=== PATIENT | male | born 1960 | race Caucasian/White ===

== ENCOUNTER 2019-04-07 16:11 | Emergency (ER) | payer OTHER ==
--- NOTE | 2019-04-07 16:52 | ED ---
Upper Extremity Pain - HPI Summary HPI Summary: Patient is a 58-year-old male presenting to the ED after a fall from skiing. He states he fell directly on the right shoulder. He is unable to move the shoulder. He is endorsing pain over the shoulder without pain to the neck to the head or to the right arm otherwise. Denies any chest pain or rib pain. He states he denies any other injuries during his fall. He has taken no medication prior to arrival. He has never injured the right shoulder in the past. - History of Current Complaint Chief Complaint: EDShouVania Stated Complaint: R SHOULDER PAIN PER EMS Time Seen by Provider: 04/07/19 16:17 Hx Obtained From: Patient Mechanism Of Injury: Blunt Trauma Onset/Duration: Started Hours Ago Timing: Constant Severity Initially: Moderate Severity Currently: Moderate Pain Location: Shoulder Aggravating Factor(s): Movement, Lifting, Flexion, Extension, Internal/External Rotation Alleviating Factor(s): Rest Associated Signs & Symptoms: Negative: Swelling, Redness, Bruising Related History: Dominant Hand Right - Risk Factors Non-Orthopedic Risk Factor: Negative DVT Risk Factors: Negative Septic Arthritis Risk Factor: Negative - Allergies/Home Medications Allergies/Adverse Reactions: Allergies Allergy/AdvReac Type Severity Reaction Status Date / Time Penicillins Allergy unk Verified 03/31/18 09:46 Home Medications: Home Medications Albuterol HFA INHALER* [Ventolin HFA Inhaler*] 1 puff INH Q6H PRN #1 mdi [Rx] Azithromycin TAB* [Zithromax TAB (Z-LASHA) 250 mg #6 tabs] 2 tab PO .TODAY, THEN 1 DAILY #1 lasha 03/31/18 [Rx] HYDROcodone/ACETAMIN 5-325 MG* [[place] 5-325 TAB*] 1 tab PO Q4H PRN #18 tab MDD 6 04/07/19 [Rx] PMH/Surg Hx/FS Hx/Imm Hx Previously Healthy: Yes Endocrine/Hematology History: Denies: Hx Diabetes, Hx Thyroid Disease Cardiovascular History: Denies: Hx Hypertension, Hx Pacemaker/ICD Respiratory History: Denies: Hx Asthma, Hx Chronic Obstructive Pulmonary Disease (COPD) GI History: Denies: Hx Ulcer Sensory History: Denies: Hx Hearing Aid Psychiatric History: Denies: Hx Panic Disorder - Surgical History Surgery Procedure, Year, and Place: VASECTOMY/HEMROIDECTOMY - Immunization History Hx Pertussis Vaccination: No Immunizations Up to Date: Yes Infectious Disease History: No Infectious Disease History: Denies: Hx Hepatitis, Hx Human Immunodeficiency Virus (HIV), Traveled Outside the US in Last 30 Days - Family History Known Family History: Positive: None - Social History Occupation: Employed Full-time Lives: With Family Alcohol Use: Daily Hx Substance Use: No Substance Use Type: Reports: None Hx Tobacco Use: No Smoking Status (MU): Never Smoked Tobacco Review of Systems Negative: Fever, Chills, Fatigue, Skin Diaphoresis Negative: Palpitations, Chest Pain Negative: Shortness Of Breath, Cough Genitourinary: Negative Positive: no symptoms reported, see HPI Positive: Arthralgia - right shoulder pain. Negative: Myalgia Neurological/Mental Status: Negative All Other Systems Reviewed And Are Negative: Yes Physical Exam Triage Information Reviewed: Yes Vital Signs On Initial Exam: Initial Vitals Temp Pulse Resp BP Pulse Ox 98.1 F 72 18 131/82 98 04/07/19 16:19 04/07/19 16:19 04/07/19 16:19 04/07/19 16:19 04/07/19 16:19 Vital Signs Reviewed: Yes Appearance: Positive: Well-Appearing, Well-Nourished Skin: Positive: Warm, Skin Color Reflects Adequate Perfusion Head/Face: Positive: Normal Head/Face Inspection Eyes: Positive: EOMI, DOROTHY Neck: Positive: Supple Respiratory/Lung Sounds: Positive: Clear to Auscultation, Breath Sounds Present Cardiovascular: Positive: RRR, Pulses are Symmetrical in both Upper and Lower Extremities Musculoskeletal: Positive: Pain @ - right shoulder with limited ROM Neurological: Positive: Sensory/Motor Intact, Alert, Oriented to Person Place, Time, Speech Normal Psychiatric: Positive: Normal, Affect/Mood Appropriate Procedures - Sedation Patient Received Moderate/Deep Sedation with Procedure: No Diagnostics - Vital Signs Vital Signs Temp Pulse Resp BP Pulse Ox 04/07/19 16:19 98.1 F 72 18 131/82 98 - Laboratory Lab Statement: Any lab studies that have been ordered have been reviewed, and results considered in the medical decision making process. Course/Dx - Course Course Of Treatment: Xray obtained: Appears to be an AC joint separation, grade V. Patient able to move the shoulder only approx 20 degrees in abduction. Sling given. Orthopedic follow up given. Pt pain is controlled. - Diagnoses Differential Diagnosis/HQI/PQRI: Positive: Fracture (Closed), Strain, Sprain, Other - dislocation Provider Diagnoses: Acromioclavicular joint separation Discharge ED - Sign-Out/Discharge Documenting (check all that apply): Patient Departure - Discharge Plan Condition: Good Disposition: HOME Prescriptions: HYDROcodone/ACETAMIN 5-325 MG* [[place] 5-325 TAB*] 1 tab PO Q4H PRN #18 tab MDD 6 PRN Reason: Pain Patient Education Materials: Acromioclavicular Separation (ED) Referrals: Gadiel Acuña MD [Medical Doctor] - Leia Boyd MD [Medical Doctor] - Additional Instructions: Please call tomorrow morning for an appt Keep the arm in the sling at all times Ibuprofen 600mg four times daily NORCO up to 6 times daily as needed for pain (may take 10mg total just before bed) - Billing Disposition and Condition Condition: GOOD Disposition: Home - Attestation Statements Provider Attestation: I was available for consult. This patient was seen by the [facility]. The patient was not presented to, seen by, or examined by me. Carlton Daniels MD
--- OUTSIDE RECORDS SUMMARY | 2019-04-07 17:05 | XMS REPORT | Continuity of Care Document ---
:1960 External Reference #:[id number] Author Name Gadiel Acuña MD Address [address] [place] [address] Care Team Providers Name Role Phone Gadiel Acuña MD FACP - Care Team Information Inventory Specialist Manager [phone] Internal Medicine Julio César Nice MD - Adult Care Team Information Inventory Specialist Manager [phone] Reconstructive Orthopaedic Surgery Rudy Abbott MD - Otolaryngology Care Team Information Inventory Specialist Manager Yeni Patino MD - Gastroenterology Care Team Information Inventory Specialist Manager Dell Serrano MD - Surgery Care Team Information Inventory Specialist Manager Problems Active Problems Provider Date Mixed hyperlipidemia Gadiel Acuña MD Onset: 06/29/2017 Impaired fasting glycaemia Gadiel Acuña MD Onset: 06/29/2017 Social History Type Date Description Comments Sex Unknown ETOH Use 03/12/2014 Currently consumes 2 beers and 1 drink of alcohol hard liquor daily. Tobacco Use Start: Unknown Patient has never smoked Recreational Drug Use 03/10/2014 Former Drug User Marijuana daily for 20 yrs. Allergies, Adverse Reactions, Alerts Active Allergies Reaction Severity Comments Date Penicillins Pediatric Severe Confirmed with allergy 03/14/2014 testing as adult Pollen Sneezing,itchy eyes Moderate Confirmed with allergy 03/14/2014 testing as adult Mold Sneezing, itchy eyes Moderate Confirmed with allergy 03/14/2014 testing as adult Medications Active Medications SIG Qnty Indications Ordering Date Provider Pneumovax 23 administer half a .500ml Z00.01 Gadiel Villaseñor 11/29/2018 milliliters MD Arianne 25mcg/0.5ML intramuscularly one Injection time for inactivated vaccination to prevent pneumococcal infection Shingrix one intramuscular dose 1units Z00.01 Ramesh A 11/29/2018 now and repeat 2nd MD Arianne 50mcg/0.5ML dose after 2-6 months. Suspension Rec Sildenafil Citrate take one-half to one 6tabs F52.21 Ramesh A 12/13/2017 tablet by mouth daily MD Arianne 100mg Tablets as needed for erectile dysfunction Immunizations CPT Code Status Date Vaccine Lot # [id number] Given 11/29/2018 Influenza Vaccine Quadrivalent [id number] Preser/Antibiotic Free Im Use 74651 Given 12/13/2017 Influenza Vaccine Quadrivalent [id number] Preser/Antibiotic Free Im Use 11250 Given 09/20/2017 Prevnar (Pneumonia) 13 Vaccine [id number] Given 02/18/2017 Influenza Vaccine Quadrivalent Preser/Antibiotic Free Im Use 83191 Given 06/28/2016 Tdap-Tetanus, Diphtheria Toxoids/Acellular [id number] Pertussis Vaccine 7+ 60987 Given 01/14/2016 Influenza Virus Split 3 Yrs And Above For Intramuscular Use 84248 Given 03/12/2014 Tdap-Tetanus, Diphtheria Toxoids/Acellular [id number] Tdap Pertussis Vaccine 7+ 36213 Given 03/12/2014 Influenza Virus Vaccine Split Virus Use Flu Shot [id number] For Individual 3Yr Older 41892 Given 02/16/2011 Influenza Virus Split 3 Yrs And Above For Intramuscular Use 05168 Given 03/10/2009 Tdap-Tetanus, Diphtheria Toxoids/Acellular Pertussis Vaccine 7+ Vital Signs Date Vital Result Comment 03/28/2019 4:10pm Body Temperature 98.5 F Weight 164.00 lb 11/29/2018 3:17pm Body Temperature 98.0 F O2 % BldC Oximetry 99 % Heart Rate 62 /min BP Systolic 135 mmHg BP Diastolic 85 mmHg BMI (Body Mass Index) 22.9 kg/m2 Weight 155.00 lb Height 69 inches 5'9" Results Test Acquired Date Facility Test Result H/L Range Note CBC No Diff 11/26/2018 [facility] White Blood 3.9 10^3/uL Normal 3.5-10.8 [place] [address] Count [phone] Red Blood Count 4.90 10^6/uL Normal 4.18-5.48 Hemoglobin 16.4 g/dL Normal 14.0-18.0 Hematocrit 48 % Normal 42-52 Mean Corpuscular Volume 98 fL High 80-94 Mean Corpuscular Hemoglobin 33 pg High 27-31 Mean Corpuscular HGB Conc 34 g/dL Normal 31-36 Red Cell Distribution Width 13 % Normal 10-15 Platelet Count 207 10^3/uL Normal 150-450 Mean Platelet Volume 7.6 fL Normal 7.4-10.4 Comp Metabolic 11/26/2018 [facility] Sodium 138 mmol/L Normal 135-145 [place] [address] [phone] Potassium 4.5 mmol/L Normal 3.5-5.0 Chloride 102 mmol/L Normal 101-111 Co2 Carbon Dioxide 29 mmol/L Normal 22-32 Anion Gap 7 mmol/L Normal 2-11 Glucose 100 mg/dL Normal 70-100 Blood Urea Nitrogen 13 mg/dL Normal 6-24 Creatinine 1.01 mg/dL Normal 0.67-1.17 BUN/Creatinine Ratio 12.9 Normal 8-20 Calcium 9.7 mg/dL Normal 8.6-10.3 Total Protein 6.7 g/dL Normal 6.4-8.9 Albumin 4.6 g/dL Normal 3.2-5.2 Globulin 2.1 g/dL Normal 2-4 Albumin/Globulin Ratio 2.2 Normal 1-3 Total Bilirubin 0.60 mg/dL Normal 0.2-1.0 Alkaline Phosphatase 57 U/L Normal 34-104 Alt 33 U/L Normal 7-52 Ast 24 U/L Normal 13-39 Egfr Non- 76.4 >60 Egfr 92.5 >60 1 Lipid Profile 11/26/2018 [facility] Triglycerides 122 mg/dL 2 (Trig/Chol/HDL) [place], [place] [id number] [phone] Cholesterol 219 mg/dL 3 HDL Cholesterol 77.9 mg/dL 4 LDL Cholesterol 117 mg/dL 5 Laboratory test 11/26/2018 [facility] Hemoglobin A1c 5.0 % Normal 4.0-5.6 6 [place] [address] (Glyco HGB) [phone] PSA Screening 0.837 ng/mL Normal 0-4.000 7 1 Because ethnic data is not always readily available, this report includes an eGFR for both -Americans and non- Americans. The National Kidney Disease Education Program (NKDEP) does not endorse the use of the MDRD equation for patients that are not between the ages of 18 and 70, are , have extremes of body size, muscle mass, or nutritional status, or are non- or non-. According to the National Kidney Foundation, irrespective of diagnosis, the stage of the disease is based on the level of kidney function: Stage Description GFR(mL/min/1.73 m(2)) 1 Kidney damage with normal or decreased GFR 90 2 Kidney damage with mild decrease in GFR 60-89 3 Moderate decrease in GFR 30-59 4 Severe decrease in GFR 15-29 5 Kidney failure <15 (or dialysis) 2 Desirable: <150 Borderline High: 150-199 High: 200-499 Very High: >500 3 Desirable: <200 Borderline High: 200-239 High: >239 4 Low: <40 Desirable: 40-60 High: >60 5 Desirable: <100 Near Optimal: 100-129 Borderline High: 130-159 High: 160-189 Very High: >189 6 Therapeutic target for the treatment of diabetes mellitus patients is <7% HBA1C, and in selective patients <6.0%. Please refer to [place] [employer] Association diabetic care guidelines for further information. 7 Serum levels of PSA measured using the Wendy Maricel DXI Hybritech immunoassay should not be interpreted as absolute evidence of the presence or absence of disease. The PSA value should be used in conjunction with other pertinent clinical diagnostic procedures. The values obtained with different assay methods or kits cannot be used interchangeably. Procedures Date Code Description Status 06/16/2014 54856191 Colonoscopy Completed 06/10/2014 28551594 Colonoscopy Completed Medical Devices Description No Information Available Encounters Type Date Location Provider Dx Diagnosis Office Visit 03/28/2019 Main Office Gadiel Acuña K64.8 Other hemorrhoids 4:00p Office Visit 11/29/2018 Main Office Gadiel Acuña Z00.01 Encounter for general 3:20p adult medical exam w abnormal findings R73.01 Impaired fasting glucose E78.2 Mixed hyperlipidemia Z23 Encounter for immunization Assessments Date Code Description Provider 03/28/2019 K64.8 Other hemorrhoids Gadiel Acuña MD 11/29/2018 Z00.01 Encounter for general adult medical Gadiel Acuña MD examination with abnormal findings 11/29/2018 R73.01 Impaired fasting glucose Gadiel Acuña MD 11/29/2018 E78.2 Mixed hyperlipidemia Gadiel Acuña MD 11/29/2018 Z23 Encounter for immunization Gadiel Acuña MD Plan of Treatment 03/28/2019 - Gadiel Acuña MDK64.8 Other hemorrhoidsComments:At request referral arranged and further evaluation and management will be deferred to surgery.Referral:Dell Serrano MD, Surgery,General Functional Status Description No Information Available Mental Status Description No Information Available Referrals Refer to Dr Reason for Referral Status Appt Date Dell Serrano MD Created [address] [place] [address] [place] [address] [phone]
--- OUTSIDE RECORDS SUMMARY | 2019-04-07 17:05 | XMS REPORT | Continuity of Care Document ---
:1960 External Reference #:[id number] Author Name Dell Serrano MD, FACS (transmitted by agent of provider Charles Montgomery) Address [address] [place] [address] [place] [address] Care Team Providers Name Role Phone Gadiel Acuña MD - Internal Care Team Information [employer] Medicine Problems Description No Information Available Social History Type Date Description Comments Sex Unknown ETOH Use Currently consumes alcohol 2-3 drinks/day Tobacco Use Start: Unknown Patient has never smoked Recreational Drug Use Denies Drug Use Smoking Status Reviewed: 04/05/19 Patient has never smoked Exercise Type/Frequency Exercises regularly Allergies, Adverse Reactions, Alerts Active Allergies Reaction Severity Comments Date Penicillin per allergy testing 01/30/2014 Medications Active Medications SIG Qnty Indications Ordering Provider Date Sildenafil Citrate use daily as Unknown 100mg needed Tablets Vitamin B 1 tab by mouth Unknown daily Immunizations Description No Information Available Vital Signs Date Vital Result Comment 04/05/2019 10:34am Height 69 inches 5'9" Weight 160.00 lb Heart Rate 66 /min BP Systolic Sitting 132 mmHg BP Diastolic Sitting 80 mmHg Respiratory Rate 16 /min Body Temperature 97.1 F BMI (Body Mass Index) 23.6 kg/m2 02/20/2014 2:43pm Height 69 inches 5'9" Weight 155.00 lb Pain Level 3 BMI (Body Mass Index) 22.9 kg/m2 Results Description No Information Available Procedures Date Code Description Status 04/05/2019 13762 Hemorrhoidectomy, Internal, By Rubber Band Ligation(S) Completed 06/10/2014 [id number] Colonoscopy Completed Medical Devices Description No Information Available Encounters Description No Information Available Assessments Date Code Description Provider 04/05/2019 K64.9 Unspecified hemorrhoids Dell Serrano MD, FACS Plan of Treatment Future Appointment(s):05/09/2019 3:30 pm - Dell Serrano MD, FACS at [facility]04/05/2019 - Dell Serrano MD, FACSK64.9 Unspecified hemorrhoidsFollow up:4 weeks Functional Status Description No Information Available Mental Status Description No Information Available Referrals Description No Information Available
[2019-04-07] MEDS ORDERED: HYDROcodone/ACETAMIN 5-325 MG* 1 TAB PO ONE (17:35)
[2019-04-07 17:51] VITALS: BP 163/81
== END 2019-04-07 17:51 | disposition home or self-care (01) ==
LOC: ED 16:11
DX: S43.101A Unspecified dislocation of right acromioclavicular joint, initial encounter (principal); V00.321A Fall from snow-skis, initial encounter; Y93.23 Activity, snow (alpine) (downhill) skiing, snowboarding, sledding, tobogganing and snow tubing; Y92.9 Unspecified place or not applicable; Z88.0 Allergy status to penicillin
CPT/HCPCS: 99282

== ENCOUNTER 2019-04-07 19:21 | Emergency (ER) | payer OTHER ==
--- NOTE | 2019-04-07 19:43 | ED ---
Upper Extremity Pain - HPI Summary HPI Summary: 58-year-old male presents to emergency department today after being discharged approximately one hour ago with a right shoulder injury. 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 Patient is otherwise well and has no other complaints. Patient denies fever, chest pain, abdominal pain, pain with urination, rash, nausea, vomiting, diarrhea. Patient is in no acute distress. Surgical history family history is noncontributory. - History of Current Complaint Chief Complaint: EDMedicationRefill Stated Complaint: MED REFILL PER PT Time Seen by Provider: 04/07/19 19:31 Hx Obtained From: Patient Onset/Duration: Started Hours Ago Timing: Constant Severity Initially: Moderate Severity Currently: Moderate Pain Location: Shoulder Character: Aching Aggravating Factor(s): Movement, Lifting, Flexion, Abduction, Adduction Alleviating Factor(s): Rest Associated Signs & Symptoms: Positive: Swelling - Allergies/Home Medications Allergies/Adverse Reactions: Allergies Allergy/AdvReac Type Severity Reaction Status Date / Time Penicillins Allergy unk Verified 04/07/19 19:25 Home Medications: Home Medications Albuterol HFA INHALER* [Ventolin HFA Inhaler*] 1 puff INH Q6H PRN #1 mdi [Rx] Azithromycin TAB* [Zithromax TAB (Z-LASHA) 250 mg #6 tabs] 2 tab PO .TODAY, THEN 1 DAILY #1 lasha 03/31/18 [Rx] HYDROcodone/ACETAMIN 5-325 MG* [[place] 5-325 TAB*] 1 tab PO Q4H PRN #18 tab MDD 6 04/07/19 [Rx] PMH/Surg Hx/FS Hx/Imm Hx Endocrine/Hematology History: Denies: Hx Diabetes, Hx Thyroid Disease Cardiovascular History: Denies: Hx Hypertension, Hx Pacemaker/ICD Respiratory History: Denies: Hx Asthma, Hx Chronic Obstructive Pulmonary Disease (COPD) GI History: Denies: Hx Ulcer Sensory History: Denies: Hx Hearing Aid Psychiatric History: Denies: Hx Panic Disorder - Surgical History Surgery Procedure, Year, and Place: VASECTOMY/HEMROIDECTOMY Infectious Disease History: No Infectious Disease History: Denies: Hx Hepatitis, Hx Human Immunodeficiency Virus (HIV), Traveled Outside the [place] in Last 30 Days - Family History Known Family History: Positive: None - Social History Alcohol Use: Daily Hx Substance Use: No Substance Use Type: Reports: None Hx Tobacco Use: No Smoking Status (MU): Never Smoked Tobacco Review of Systems Constitutional: Negative Eyes: Negative ENT: Negative Cardiovascular: Negative Respiratory: Negative Gastrointestinal: Negative Genitourinary: Negative Positive: Arthralgia Skin: Negative Neurological/Mental Status: Negative Psychological: Normal All Other Systems Reviewed And Are Negative: Yes Physical Exam Triage Information Reviewed: Yes Vital Signs On Initial Exam: Initial Vitals Temp Pulse Resp BP Pulse Ox 98.1 F 58 15 137/94 96 04/07/19 19:23 04/07/19 19:23 04/07/19 19:23 04/07/19 19:23 04/07/19 19:23 Vital Signs Reviewed: Yes Appearance: Positive: Well-Appearing, No Pain Distress, Well-Nourished Skin: Positive: Warm, Skin Color Reflects Adequate Perfusion Eyes: Positive: EOMI, DOROTHY ENT: Positive: Hearing grossly normal Respiratory/Lung Sounds: Positive: Clear to Auscultation, Breath Sounds Present Cardiovascular: Positive: RRR, S1, S2 Neurological: Positive: Sensory/Motor Intact, Alert, Oriented to Person Place, Time, Normal Gait, Facial Symmetry, Speech Normal Psychiatric: Positive: Normal, Affect/Mood Appropriate AVPU Assessment: Alert Procedures - Sedation Patient Received Moderate/Deep Sedation with Procedure: No Diagnostics - Vital Signs Vital Signs Temp Pulse Resp BP Pulse Ox 04/07/19 19:23 98.1 F 58 15 137/94 96 - Laboratory Lab Statement: Any lab studies that have been ordered have been reviewed, and results considered in the medical decision making process. Course/Dx - Course Course Of Treatment: Patient evaluated in the emergency department today for medication prescription after being seen in the emergency department for shoulder pain approximately one hour ago. Patient was given prescription for oxycodone-acetaminophen 5 mg/325 mg every 6 hours 2 by mouth. Patient discharged with outpatient follow-up. - Diagnoses Differential Diagnosis/HQI/PQRI: Positive: Arthritis, Bursitis, Fracture (Closed ), Strain, Sprain Provider Diagnoses: Shoulder pain Discharge ED - Sign-Out/Discharge Documenting (check all that apply): Patient Departure - Discharge Plan Condition: Stable Disposition: HOME Patient Education Materials: Safe Disposal of Opioids (ED) Referrals: No Primary Care Phys,NOPCP [Primary Care Provider] - Leia Boyd MD [Medical Doctor] - Additional Instructions: Please follow discharge instructions from previous ER visit. Please take pain medication every 6 hours as needed for pain unable to be controlled by ibuprofen. Please return to this emergency Department immediately if you develop any new or worsening symptoms. - Billing Disposition and Condition Condition: STABLE Disposition: Home
[2019-04-07] MEDS: Ibuprofen TAB* 800 MG PO ONE ×2 (20:01→20:03)
[2019-04-07 20:18] VITALS: BP 00/00
== END 2019-04-07 20:17 | disposition home or self-care (01) ==
LOC: ED 19:21
DX: M25.511 Pain in right shoulder (principal); Z76.0 Encounter for issue of repeat prescription; Z88.0 Allergy status to penicillin
CPT/HCPCS: 99282; A9270-GY